=== PATIENT | male | born 1990 | race Caucasian/White ===

== ENCOUNTER 2018-06-13 21:41 | Emergency (ER) | payer BC, MEDICAID ==
[2018-06-13] MEDS: HYDROCODONE/APAP (5/325) TAB PO (22:10)
[2018-06-13] MEDS: DIPHTH/TET/ACEL PERTUSS (ADULT) 0.5 ML VIAL IM* (22:11)
[2018-06-13] MEDS: SODIUM CHLORIDE 0.9% 1L IRRIG IRR (22:50)
[2018-06-13] MEDS: LIDOCAINE 2%/EPI MPF (SDV) 20 ML VIAL INJ (22:50)
== END 2018-06-14 00:56 | disposition home or self-care (01) ==
LOC: FTE 06-14 00:56
DX: S81.012A Laceration without foreign body, left knee, initial encounter (principal); S81.812A Laceration without foreign body, left lower leg, initial encounter; F17.210 Nicotine dependence, cigarettes, uncomplicated; W25.XXXA Contact with sharp glass, initial encounter; Y92.9 Unspecified place or not applicable; Z23 Encounter for immunization
CPT/HCPCS: 12006; 73562; 73590; 90471; 90715; 99283-25

== ENCOUNTER 2018-06-22 08:02 | Emergency (ER) | payer BC | END 2018-06-22 09:00 | disposition home or self-care (01) | LOC: FTE 08:02 | DX: Z48.02 Encounter for removal of sutures (principal); R40.2412 Glasgow coma scale score 13-15, at arrival to emergency department; F17.210 Nicotine dependence, cigarettes, uncomplicated | CPT/HCPCS: 99281 ==